=== PATIENT | male | born 1945 | race Caucasian/White ===

== ENCOUNTER 2017-01-24 19:27 | Emergency (ER) | payer MEDICARE ==
[2017-01-24 20:19] VITALS: TEMP 97.9
[2017-01-24 23:06] VITALS: O2SAT 98
--- NOTE | 2017-01-24 23:22 | C.PDOC ---
History Of Present Illness While sitting, pt felt dizzy., No cp, palpitations, no tinnitus. Symptoms since then have subsided. [place] like his sugar was high. No f/c/n/v Time Seen by Provider: 01/24/17 23:22 Chief Complaint (Nursing): Dizziness/Lightheaded History Per: Patient History/Exam Limitations: no limitations Onset/Duration Of Symptoms: Hrs (5) Current Symptoms Are (Timing): Gone Activity At Onset Of Symptoms: Sitting Severity: None Pain Scale Rating Of: 0 Recent travel outside of the [place]: No Additional History Per: Family - Symptoms Of CVA Associated Symptoms: denies: Impaired Speech, Decreased Ability To Walk, New Confusion Recent Aspirin Use: No Current Coumadin Use?: No Recent Head Trauma: No Past Medical History Reviewed: Historical Data, Nursing Documentation, Vital Signs Vital Signs: Last Vital Signs Temp 97.9 F 01/24/17 20:17 Pulse 82 01/24/17 23:00 Resp 20 01/24/17 23:00 BP 135/68 01/24/17 23:00 Pulse Ox 98 01/25/17 00:04 - Medical History PMH: Diabetes, HTN Family History: States: No Known Family Hx - Social History Hx Tobacco Use: No Hx Alcohol Use: No Hx Substance Use: No - Immunization History Hx Tetanus Toxoid Vaccination: Yes Hx Influenza Vaccination: Yes Hx Pneumococcal Vaccination: Yes Review Of Systems Constitutional: Negative for: Fever, Chills Eyes: Positive for: Redness Cardiovascular: Negative for: Chest Pain, Palpitations Respiratory: Negative for: Shortness of Breath Gastrointestinal: Negative for: Nausea, Vomiting, Abdominal Pain Genitourinary: Negative for: Dysuria Musculoskeletal: Negative for: Back Pain Skin: Negative for: Rash, Lesions Neurological: Negative for: Weakness Psych: Negative for: Anxiety Physical Exam - Physical Exam Appears: Non-toxic, No Acute Distress Skin: Warm, Dry Head: Normacephalic Eye(s): left: Other (subconjuctival hemmorhage) Oral Mucosa: Moist Lips: Normal Appearing Neck: Trachea Midline, Supple Chest: Symmetrical Cardiovascular: Rhythm Regular Respiratory: No Rales, No Rhonchi, No Wheezing Gastrointestinal/Abdominal: Soft, No Tenderness, No Distention Back: No CVA Tenderness Extremity: Normal ROM Extremity: Bilateral: Atraumatic Neurological/Psych: Oriented x3, Normal Speech, Normal Cognition Gait: Steady ED Course And Treatment - Laboratory Results Result Diagrams: 01/24/17 23:47 01/24/17 23:47 ECG: Interpreted By Me, Viewed By Me O2 Sat by Pulse Oximetry: 98 Pulse Ox Interpretation: Normal - Radiology CXR: Interpreted by Me, Viewed By Me CXR Interpretation: No: Infiltrates, Fracture, Pnemothorax Reevaluation Time: 02:04 Reassessment Condition: Improved Medical Decision Making Medical Decision Making: Upon provider reevaluation patient is feeling better, is medically stable, and requires no further treatment in the ED at this time. Patient will be discharged home . Counseling was provided and all questions were answered regarding diagnosis and need for follow up with dr munguia. There is agreement to discharge plan. Return if symptoms persist or worsen. Disposition Counseled Patient/Family Regarding: Studies Performed, Diagnosis, Need For Followup - Disposition Referrals: Arcenio Munguia MD [Staff Provider] - Disposition: HOME/ ROUTINE Disposition Time: 23:22 Condition: FAIR Additional Instructions: Please return if symptoms recur Instructions: Dizziness (ED), Diabetic Hyperglycemia (ED) - Clinical Impression Clinical Impression: Dizziness, Hyperglycemia
[2017-01-24 23:51] LABS: BASO # 0.1 K/uL (0.0-0.2); EOS # 0.1 K/uL (0.0-0.7); EOS % 1.3 % (0.0-4.0); LYMPH # 1.9 K/uL (1.0-4.3); MEAN CELL VOLUME 88.6 fL (80.0-94.0); MEAN CORPUSCULAR HEMOGLOBIN 29.2 pg (27.0-31.0); MEAN PLATELET VOLUME 7.7 fL (7.2-11.7); MONO # 0.7 K/uL (0.0-0.8); MONO % 7.7 % (0.0-10.0); RED CELL DISTRIBUTION WIDTH 13.7 % (11.5-14.5); WHITE BLOOD COUNT 9.6 K/uL (4.8-10.8)
[2017-01-25 00:01] LABS: CHLORIDE 103 mmol/L (98-107)
[2017-01-25 00:02] LABS: POTASSIUM 3.8 mmol/L (3.6-5.2); SODIUM 134 mmol/L (132-148)
[2017-01-25 00:04] LABS: ALB/GLOB RATIO 1.3 (1.0-2.1); ALKALINE PHOSPHATASE 57 U/L (38-126); ALT/SGPT 18 U/L (21-72); AST/SGOT 23 U/L (17-59); BILIRUBIN,TOTAL 0.6 mg/dL (0.2-1.3); BLOOD UREA NITROGEN 26 mg/dL (9-20); CARBON DIOXIDE 21 mmol/L (22-30); GFR AFRICAN-AMERICAN 38; TOTAL PROTEIN 6.9 g/dL (6.3-8.3)
[2017-01-25 00:05] LABS: GLUCOSE,RANDOM 216 mg/dL (75-110)
[2017-01-25 00:19] LABS: URINE BILIRUBIN NEGATIVE (NEGATIVE); URINE BLOOD NEGATIVE (NEGATIVE); URINE COLOR Straw (YELLOW); URINE GLUCOSE (UA) 2+ mg/dL (Normal); URINE KETONE NEGATIVE (NEGATIVE); URINE LEUKOCYTE ESTERASE NEG Leu/uL (Negative); URINE PROTEIN 1+ mg/dL (NEGATIVE); URINE UROBILINOGEN NORMAL mg/dL (0.2-1.0); WBC URINE < 1 /hpf (0-5)
[2017-01-25 02:18] VITALS: BP 145/75; PULSE 78; RESP 18
--- NOTE | 2017-01-25 07:40 | CT ---
PROCEDURE: CT HEAD WITHOUT CONTRAST. HISTORY: dizziness COMPARISON: None available. TECHNIQUE: Axial computed tomography images were obtained through the head/brain without intravenous contrast. Radiation dose: Total exam DLP = eight hundred eighty-one mGy-cm. This CT exam was performed using one or more of the following dose reduction techniques: Automated exposure control, adjustment of the mA and/or kV according to patient size, and/or use of iterative reconstruction technique. FINDINGS: HEMORRHAGE: No intracranial hemorrhage. BRAIN: No mass effect or edema. Scattered focal lucencies in the subcortical and periventricular white matter suggestive for chronic microvascular ischemic change. Probable small left basal ganglia lacunar infarct. VENTRICLES: Unremarkable. No hydrocephalus. CALVARIUM: Unremarkable. PARANASAL SINUSES: Unremarkable as visualized. No significant inflammatory changes. MASTOID AIR CELLS: Unremarkable as visualized. No inflammatory changes. OTHER FINDINGS: None. IMPRESSION: No acute intracranial abnormality. Chronic microvascular ischemic changes. Probable small left basal ganglia lacunar infarct. If focal neurologic deficit persists, consider MRI. These findings were preliminarily reported at 2 a.m. on 01/25/[address] Jaime Meehan from [facility].
--- NOTE | 2017-01-25 09:22 | RAD ---
PROCEDURE: CHEST RADIOGRAPH, 1 VIEW HISTORY: Diabetic COMPARISON: 12/09/2014. FINDINGS: LUNGS: The lungs are clear. PLEURA: No pneumothorax or pleural fluid seen. CARDIOVASCULAR: Normal. OSSEOUS STRUCTURES: No significant abnormalities. VISUALIZED UPPER ABDOMEN: Normal. OTHER FINDINGS: None. IMPRESSION: No active pulmonary disease.
== END 2017-01-25 02:17 | disposition home or self-care (01) ==
LOC: C.ER 19:27
DX: E11.65 Type 2 diabetes mellitus with hyperglycemia (principal); R42 Dizziness and giddiness

== ENCOUNTER 2017-06-30 07:57 | Inpatient (IN) | payer MEDICARE ==
--- NOTE | 2017-06-30 08:17 | C.PDOC ---
History Of Present Illness 71 yo male, hx of htn, hld, presents with weakness. as per pt, fell yesterday, after he slippedon water. today woke up and "couldn't walk". pt denies any specific complaints, head injury, fever, abdominal pain, cough, urinary changes , diarrhea. loc. Time Seen by Provider: 06/30/17 08:01 Chief Complaint (Nursing): Weakness/Neurological Deficit Past Medical History Reviewed: Historical Data, Nursing Documentation, Vital Signs Vital Signs: Last Vital Signs Temp 98.9 F 07/02/17 07:15 Pulse 94 H 07/02/17 10:34 Resp 18 07/02/17 07:15 BP 135/83 07/02/17 07:15 Pulse Ox 96 07/02/17 13:01 - Medical History PMH: Diabetes, HTN Family History: States: Unknown Family Hx - Social History Hx Tobacco Use: No Hx Alcohol Use: No Hx Substance Use: No - Immunization History Hx Tetanus Toxoid Vaccination: Yes Hx Influenza Vaccination: Yes Hx Pneumococcal Vaccination: Yes Review Of Systems Except As Marked, All Systems Reviewed And Found Negative. Neurological: Positive for: Weakness Physical Exam - Physical Exam Appears: Well, No Acute Distress Skin: Normal Color, Warm, Dry Eye(s): bilateral: Normal Inspection, PERRL, EOMI Nose: Normal Throat: Normal Neck: Normal Cardiovascular: Rhythm Regular Respiratory: Normal Breath Sounds Gastrointestinal/Abdominal: Normal Exam, Soft, No Tenderness, No Guarding, No Rebound Back: Normal Inspection, No CVA Tenderness, No Vertebral Tenderness, No Muscle Spasm, No Paraspinal Tenderness Extremity: Normal ROM Neurological/Psych: Oriented x3, Normal Speech, Normal Cognition, Normal Cranial Nerves, No Cerebellar Signs, Normal Motor ED Course And Treatment - Laboratory Results Result Diagrams: 07/02/17 07:35 07/02/17 07:35 O2 Sat by Pulse Oximetry: 96 Medical Decision Making Medical Decision Making: consider cva/tia, metabolic, infectious etiology- labs imaging pending. ekg nsr [address] twave changes 910: pt reassesed: states he no longer feels weak. neuro intact. no saddle anesthesia. 920: attempted to ambulate pt, pt feels unsteady gait, Disposition - Disposition Disposition: HOSPITALIZED Disposition Time: 10:00 Condition: STABLE - Clinical Impression Clinical Impression: Ataxia, Fall Decision To Admit - Pt Status Changed To: Hospital Disposition Of: Inpatient - Admit Certification Admit to Inpatient:: After my assessment, the patient will require hospitalization for at least two midnights. This is because of the severity of symptoms shown, intensity of services needed, and/or the medical risk in this patient being treated as an outpatient. - InPatient: Physician Admission Certification: I certify that this patient requires 2 or more midnights of care for the following reason:: inability to ambulate. need pt eval for gait dysfunction - . Bed Request Type: Regular Admitting Physician: Luisa Vazquez Patient Diagnosis: Ataxia, Fall
[2017-06-30 08:34] LABS: BASO % 0.6 % (0.0-2.0); EOS # 0.2 K/uL (0.0-0.7); EOS % 3.2 % (0.0-4.0); HEMATOCRIT 36.7 % (35.0-51.0); LYMPH # 1.6 K/uL (1.0-4.3); LYMPH % 22.8 % (20.0-40.0); MEAN CELL VOLUME 90.1 fL (80.0-94.0); MEAN CORPUSCULAR HGB CONC 34.4 g/dL (33.0-37.0); MEAN PLATELET VOLUME 7.4 fL (7.2-11.7); MONO # 0.6 K/uL (0.0-0.8); MONO % 9.2 % (0.0-10.0); NRBC % 0.1 % (0.0-2.0); RED CELL DISTRIBUTION WIDTH 13.9 % (11.5-14.5); WHITE BLOOD COUNT 7.1 K/uL (4.8-10.8)
[2017-06-30 08:53] LABS: ALKALINE PHOSPHATASE 65 U/L (38-126); ALT/SGPT 31 U/L (21-72); AST/SGOT 22 U/L (17-59); BILIRUBIN,TOTAL 0.3 mg/dL (0.2-1.3); BLOOD UREA NITROGEN 26 mg/dL (9-20); CALCIUM 9.4 mg/dl (8.6-10.4); CARBON DIOXIDE 26 mmol/L (22-30); CHLORIDE 104 mmol/L (98-107); GFR AFRICAN-AMERICAN 48; GLUCOSE,RANDOM 182 mg/dL (75-110); SODIUM 137 mmol/L (132-148); TOTAL PROTEIN 7.9 g/dL (6.3-8.3)
--- NOTE | 2017-06-30 09:04 | CT ---
PROCEDURE: CT HEAD WITHOUT CONTRAST. HISTORY: weakness COMPARISON: Unenhanced head CT 01/25/2017. TECHNIQUE: Axial computed tomography images were obtained through the head/brain without intravenous contrast. Radiation dose: Total exam DLP = 813.48 mGy-cm. This CT exam was performed using one or more of the following dose reduction techniques: Automated exposure control, adjustment of the mA and/or kV according to patient size, and/or use of iterative reconstruction technique. FINDINGS: HEMORRHAGE: No intracranial hemorrhage. BRAIN: The darling-white matter differentiation is well preserved. There is no mass effect or definitive edema pattern appreciate including the cortex. Diffuse cerebral atrophy chronic microangiopathy pattern remain mild. No suspicious extra-axial fluid collection is identified in the midline brain anatomy appears grossly nonfocal as imaged. Small left basal ganglia lacune again evident. VENTRICLES: Unremarkable. No hydrocephalus. CALVARIUM: Unremarkable. PARANASAL SINUSES: Unremarkable as visualized. No significant inflammatory changes. MASTOID AIR CELLS: Unremarkable as visualized. No inflammatory changes. OTHER FINDINGS: None. IMPRESSION: Stable mild age related neuro degenerative changes are appreciate without definite acute intracranial findings by standard CT criteria. Clinically correlate further need for possible follow-up CT or MRI.
[2017-06-30 10:44] LABS: RBC URINE < 1 /hpf (0-3); URINE BILIRUBIN NEGATIVE (NEGATIVE); URINE BLOOD NEGATIVE (NEGATIVE); URINE COLOR Straw (YELLOW); URINE GLUCOSE (UA) 1+ mg/dL (Normal); URINE KETONE NEGATIVE (NEGATIVE); URINE LEUKOCYTE ESTERASE NEG Leu/uL (Negative); URINE PROTEIN 2+ mg/dL (NEGATIVE); URINE UROBILINOGEN NORMAL mg/dL (0.2-1.0); WBC URINE < 1 /hpf (0-5)
--- NOTE | 2017-06-30 10:53 | RAD ---
PROCEDURE: Radiographs of the pelvis. HISTORY: fall COMPARISON: None. FINDINGS: BONES: Pelvic Bones: Unremarkable. Hips: Grossly unremarkable. JOINTS: Sacroiliac Joints: Unremarkable. Pubic Symphysis: Unremarkable. OTHER FINDINGS: None. IMPRESSION: Unremarkable radiographs of the pelvis.
--- NOTE | 2017-06-30 10:53 | RAD ---
PROCEDURE: CHEST RADIOGRAPH, 1 VIEW HISTORY: chest pain COMPARISON: 01/24/2017 FINDINGS: LUNGS: Clear. PLEURA: No pneumothorax or pleural fluid seen. CARDIOVASCULAR: Normal. OSSEOUS STRUCTURES: No significant abnormalities. VISUALIZED UPPER ABDOMEN: Normal. OTHER FINDINGS: None. IMPRESSION: No active disease.
[2017-06-30] MEDS ORDERED: PARICALCITOL 1 MCG PO SCH (15:15)
[2017-06-30] MEDS ORDERED: Home Med 1 UNIT (Aspirin [Aspirin] 81 MG) PO SCH (15:15)
[2017-06-30] MEDS ORDERED: VALSARTAN PO SCH (15:15)
[2017-06-30] MEDS ORDERED: AMLODIPINE PO SCH (15:15)
--- NOTE | 2017-06-30 17:30 | CP.PCM.CON ---
History of Present Illness - History of Present Illness History of Present Illness: Mr. Weber is a 71-year-old man with a past medical history of DM, HTN, HLD, previous stroke, who states that yesterday when he was mopping the floor, he slipped and fell. He was able to stand up afterward and did not have any deficits after the fall. He did not injure himself. He fell on his buttocks and did not complain of much pain afterward. However, this morning, when he attempted to get out of bed, he felt that he could not stand due to balance difficulty and inability to maintain a standing position. He did not feel "weak " per se, but he did feel that he could not stand, and definitely could not walk. He denied "spinning sensation", sensory changes, new weakness, headache, admits to chronic retinal and visual deficits (nothing new), denied nausea, vomiting, chest pain, shortness of breath or abdominal pain. Review of Systems - Review of Systems All systems: reviewed and no additional remarkable complaints except Past Patient History - Infectious Disease Hx of Infectious Diseases: None - Past Social History Smoking Status: Never Smoked - CARDIAC Hx Hypertension: Yes - RENAL Hx Renal Failure: Yes - ENDOCRINE/METABOLIC Hx Diabetes Mellitus Type 2: Yes - PSYCHIATRIC Hx Substance Use: No - SURGICAL HISTORY Hx Appendectomy: Yes Hx Cholecystectomy: Yes Hx Eye Surgery: Yes - ANESTHESIA Hx Anesthesia: Yes Hx Anesthesia Reactions: No Meds Allergies/Adverse Reactions: Allergies Allergy/AdvReac Type Severity Reaction Status Date / Time No Known Allergies Allergy Verified 06/30/17 08:07 - Medications Medications: Current Medications Docusate Sodium (Colace) 100 mg PO BID PRN PRN Reason: Constipation Famotidine (Pepcid) 20 mg PO BID [facility] Last Admin: 06/30/17 12:24 Dose: 20 mg Heparin Sodium (Porcine) (Heparin) 5,000 units SC Q8 [facility] Last Admin: 06/30/17 16:30 Dose: 5,000 units Home Med (Allopurinol [Allopurinol]) 100 mg PO ONCE [facility] Home Med (Amlodipine/Valsartan [Exforge 5-320 Mg Tablet]) 1 tab PO ONCE [facility] Home Med (Aspirin [Aspirin]) 81 mg PO ONCE [facility] Home Med (Difluprednate [Durezol]) 5 ml OU QID [facility] Home Med (Paricalcitol [Paricalcitol]) 1 mcg PO ONCE [facility] Insulin Glargine (Lantus) 40 unit SC HS [facility] Meclizine HCl (Antivert) 12.5 mg PO Q8H PRN PRN Reason: Dizziness Rosuvastatin Calcium (Crestor) 10 mg PO HS [facility] Sevelamer Carbonate (Renvela) 800 mg PO BID [facility] Physical Exam - Constitutional Appears: Well - Head Exam Head Exam: ATRAUMATIC, NORMAL INSPECTION, NORMOCEPHALIC - Eye Exam Eye Exam: EOMI, Normal appearance, PERRL - ENT Exam ENT Exam: Mucous Membranes Moist, Normal Exam - Neck Exam Neck exam: Positive for: Normal Inspection - Respiratory Exam Respiratory Exam: Clear to Auscultation Bilateral, NORMAL BREATHING PATTERN - Cardiovascular Exam Cardiovascular Exam: REGULAR RHYTHM, +S1, +S2 - GI/Abdominal Exam GI & Abdominal Exam: Normal Bowel Sounds, Soft. absent: Tenderness - Rectal Exam Rectal Exam: Deferred - Extremities Exam Extremities exam: Positive for: normal inspection - Back Exam Back exam: NORMAL INSPECTION - Neurological Exam Neurological exam: Abnormal Gait, CN II-XII Intact, Oriented x3, Reflexes Normal Additional comments: Trunkal ataxia noted on standing and attempting to ambulate. Strength was full/ symmetrical. Slight ataxia on the right side on finger to nose and heal to [place]. Slight nystagmus on the right lateral gaze. No sensory deficits. [place] was abnormal. Plantar response downgoing. Reflexes normal. NIHSS=1. Results - Vital Signs Recent Vital Signs: Last Vital Signs Temp 98.2 F 06/30/17 16:24 Pulse 87 06/30/17 16:24 Resp 18 06/30/17 16:24 BP 158/85 H 06/30/17 16:24 Pulse Ox 98 06/30/17 16:24 - Labs Result Diagrams: 06/30/17 08:23 06/30/17 08:23 Labs: Laboratory Results - last 24 hr 06/30/17 06/30/17 06/30/17 08:06 08:23 08:23 WBC 7.1 RBC 4.07 L Hgb 12.6 Hct 36.7 MCV 90.1 MCH 31.0 MCHC 34.4 RDW 13.9 Plt Count 266 MPV 7.4 Neut % (Auto) 64.2 Lymph % (Auto) 22.8 [place] % (Auto) 9.2 Eos % (Auto) 3.2 Baso % (Auto) 0.6 Neut # 4.5 Lymph # 1.6 [place] # 0.6 Eos # 0.2 Baso # 0.0 PT INR APTT Sodium 137 Potassium 4.0 Chloride 104 Carbon Dioxide 26 Anion Gap 12 BUN 26 H Creatinine 1.7 H Est GFR ( Amer) 48 Est GFR (Non-Af Amer) 40 POC Glucose (mg/dL) 190 H Random Glucose 182 H Calcium 9.4 Total Bilirubin 0.3 AST 22 ALT 31 Alkaline Phosphatase 65 Total Creatine Kinase 99 Troponin I < 0.0120 Total Protein 7.9 Albumin 4.0 Globulin 3.9 Albumin/Globulin Ratio 1.0 Urine Color Urine Clarity Urine pH Ur Specific [place] Urine Protein Urine Glucose (UA) Urine Ketones Urine Blood Urine Nitrate Urine Bilirubin Urine Urobilinogen Ur Leukocyte Esterase Urine WBC (Auto) Urine RBC (Auto) 06/30/17 06/30/17 06/30/17 08:23 10:05 16:20 WBC RBC Hgb Hct MCV MCH MCHC RDW Plt Count MPV Neut % (Auto) Lymph % (Auto) [place] % (Auto) Eos % (Auto) Baso % (Auto) Neut # Lymph # [place] # Eos # Baso # PT 11.1 INR 1.0 APTT 33 Sodium Potassium Chloride Carbon Dioxide Anion Gap BUN Creatinine Est GFR ( Amer) Est GFR (Non-Af Amer) POC Glucose (mg/dL) 213 H Random Glucose Calcium Total Bilirubin AST ALT Alkaline Phosphatase Total Creatine Kinase Troponin I Total Protein Albumin Globulin Albumin/Globulin Ratio Urine Color Straw Urine Clarity Clear Urine pH 5.0 Ur Specific [place] 1.012 Urine Protein 2+ H Urine Glucose (UA) 1+ H Urine Ketones Negative Urine Blood Negative Urine Nitrate Negative Urine Bilirubin Negative Urine Urobilinogen Normal Ur Leukocyte Esterase Neg Urine WBC (Auto) < 1 Urine RBC (Auto) < 1 - Imaging and Cardiology CT scan - head Status: Image reviewed by me, Report reviewed by me (No acute findings. ) Assessment & Plan (1) Ataxia Assessment and Plan: Trunkal ataxia could be due to either a cerebellar (vermis) lesion, metabolic causes, medication, or may be due to vertebrobasilar insufficiency. I recommend the followin. Telemetry 2. MRI of the brain without contrast, MRA of the head/neck without contrast 3. Echocardiogram with bubble study 4. Aspirin 81 mg daily, and load with Plavix 300 mg now, continue 75 mg daily ( starting tomorrow); continue dual antiplatelets for 21 days, then continue only Plavix 75 mg daily indefinitely 5. Check HbA1c, Lipids, TSH, B12, Vitamin D. 6. Permissive hypertension (treat BP only if higher than 220/110 mm Hg for the next 24 hours) 7. Fluids with NS at 100 mL/hr 8. DVT Px 9. PT/OT eval and treat 10. Case management consult Thank you. Status: Acute Priority: High
[2017-06-30] MEDS ORDERED: DIFLUPREDNATE OU SCH (18:00)
--- NOTE | 2017-06-30 18:13 | VASCLAB ---
PROCEDURE: HISTORY: weakness and fall COMPARISON: None available. TECHNIQUE: Grayscale and duplex Doppler evaluation of the cervical carotid and vertebral arteries were performed. The common carotid, carotid bifurcations and cervical Internal Carotid Artery (ICA) and proximal External Carotid Artery (ECA) were evaluated. The vertebral arteries were evaluated for gross patency and flow direction. Report prepared by Wisam Gilbert, BS, RVT FINDINGS: RIGHT CAROTID ARTERIES: 1. Common Carotid Artery: No significant focal plaque formation of the right common carotid artery. Maximum Peak Systolic velocity: 60 cm/sec: End-diastolic velocity 8 cm/sec. 2. Carotid Bifurcation: plaque formation. Maximum Peak Systolic velocity: 61 cm/sec: End-diastolic velocity 11 cm/sec. 3. Internal Carotid Artery: Plaque description: 3.1. Proximal Segment: Peak systolic velocity 58 cm/sec: End-diastolic velocity 14 cm/sec - % stenosis 0-15% 3.2. Middle Segment: Peak systolic velocity 78 cm/sec: End-diastolic velocity 20 cm/sec - % stenosis 0-15% 3.3. Distal Segment: Peak systolic velocity 53 cm/sec: End-diastolic velocity 14 cm/sec - % stenosis 0-15% 4. External Carotid Artery: No significant focal plaque formation. Peak systolic velocity 103 cm/sec 5. ICA/CCA Ratio: 1.3 LEFT CAROTID ARTERIES: 1. Common Carotid Artery: No significant focal plaque formation of the left common carotid artery. Maximum Peak Systolic velocity: 74 cm/sec: End-diastolic velocity 13 cm/sec. 2. Carotid Bifurcation: Calcific plaque formation. Maximum Peak Systolic velocity: 70 cm/sec: End-diastolic velocity 11 cm/sec. 3. Internal Carotid Artery: Minimal plaque formation of the left proximal ICA which does not result in hemodynamically significant stenosis. Plaque description: Calcific 3.1. Proximal Segment: Peak systolic velocity 64 cm/sec: End-diastolic velocity 16 cm/sec - % stenosis 0-15% 3.2. Middle Segment: Peak systolic velocity 44 cm/sec: End-diastolic velocity 14 cm/sec - % stenosis 0-15% 3.3. Distal Segment: Peak systolic velocity 58 cm/sec: End-diastolic velocity 18 cm/sec - % stenosis 0-15% 4. External Carotid Artery: No significant focal plaque formation. Peak systolic velocity 90 cm/sec 5. ICA/CCA Ratio: 0.9 VERTEBRAL ARTERIES: 1. Right Vertebral Artery: The right vertebral artery flow direction is antegrade. 2. Left Vertebral Artery: The left vertebral artery flow direction is antegrade. OTHER FINDINGS: 1. Right Brachial Blood pressure: 164 mmHg. 2. Left Brachial Blood pressure: 160 mmHg. IMPRESSION: RIGHT: Duplex scan does not suggest hemodynamically significant stenosis of the right extracranial carotid arteries. LEFT: Duplex scan does not suggest hemodynamically significant stenosis of the left extracranial carotid arteries.
--- NOTE | 2017-06-30 19:41 | CP.PCM.HP ---
History of Present Illness - History of Present Illness History of Present Illness: CC: "I cant walk" HPI: 71 M who presents to the ED saying he is having trouble walking. Patient says he had an unwittnessed slip and fall yesterday while mopping the floor. He denies head trauma , loss of conciousness, and injury to his arms and legs at that time. However, when the patient woke up this morning he tried to get out of bed and says he could not stand up and walk. Patient says he did not feel like his legs were numb or even weak but he just could not walk. Patient admits to some mild dizziness upon standing. Patient denies any pain in his legs, headache, changes in vision or hearing, chest pain, palpitations, SOB, N&V, diarrhea, blood in stool, dysuria, calf pain, and LE swelling. PMH: HTN, HLD, DM1, Chronic renal insufficiency, Hx CVA Meds: * Allopurinol 100 mg PO QD * Amlodipine/Valsartan PO QD * Aspirin 81 mg PO QD * Difluprednate 5 ml OU QID * Hydralazine 25 mg PO QD * Lantus 40 U SC HS * Meclizine 12.5mg PO Q8 PRN * Paricalcitol 1 mcg PO QD * Crestor 10 mg PO HS * Renvela 800 mg PO BID * Januvia 100 mg PO QD Allergies: NKDA PSH: Appendectomy, Cholecystectomy, Retinal surgery of Right eye FH: liver disease (father), Parkinson (mother) SH: denies tobacco, alcohol, and elicit drug use Present on Admission - Present on Admission Any Indicators Present on Admission: No Review of Systems - Review of Systems All systems: reviewed and no additional remarkable complaints except (as per HPI ) Past Patient History - Infectious Disease Hx of Infectious Diseases: None - Past Social History Smoking Status: Never Smoked - CARDIAC Hx Hypertension: Yes - RENAL Hx Renal Failure: Yes - ENDOCRINE/METABOLIC Hx Diabetes Mellitus Type 2: Yes - PSYCHIATRIC Hx Substance Use: No - SURGICAL HISTORY Hx Appendectomy: Yes Hx Cholecystectomy: Yes Hx Eye Surgery: Yes - ANESTHESIA Hx Anesthesia: Yes Hx Anesthesia Reactions: No Meds Allergies/Adverse Reactions: Allergies Allergy/AdvReac Type Severity Reaction Status Date / Time No Known Allergies Allergy Verified 06/30/17 08:07 Physical Exam - Constitutional Appears: Non-toxic, No Acute Distress - Head Exam Head Exam: ATRAUMATIC, NORMAL INSPECTION, NORMOCEPHALIC - Eye Exam Eye Exam: EOMI, Normal appearance - ENT Exam ENT Exam: Mucous Membranes Moist - Respiratory Exam Respiratory Exam: Clear to Auscultation Bilateral, NORMAL BREATHING PATTERN. absent: Accessory Muscle Use, Rales, Rhonchi, Wheezes, Respiratory Distress - Cardiovascular Exam Cardiovascular Exam: RRR, +S1, +S2 - GI/Abdominal Exam GI & Abdominal Exam: Normal Bowel Sounds, Soft. absent: Tenderness - Extremities Exam Extremities exam: Positive for: normal inspection. Negative for: calf tenderness, pedal edema - Neurological Exam Neurological exam: Abnormal Gait, Alert, Oriented x3 - Expanded Neurological Exam Expanded Neuro motor strength exam: Left Upper Extremity: 5, Right Upper Extremity: 5, Left Lower Extremity: 5, Right Lower Extremity: 5 - Psychiatric Exam Psychiatric exam: Normal Affect, Normal Mood - Skin Skin Exam: Dry, Intact, Normal Color, Warm Results - Vital Signs Recent Vital Signs: Last Vital Signs Temp 98 F 06/30/17 18:43 Pulse 85 06/30/17 18:43 Resp 20 06/30/17 18:43 BP 138/84 06/30/17 18:43 Pulse Ox 95 06/30/17 18:43 - Labs Result Diagrams: 06/30/17 08:23 06/30/17 08:23 Labs: Laboratory Results - last 24 hr 06/30/17 06/30/17 06/30/17 08:06 08:23 08:23 WBC 7.1 RBC 4.07 L Hgb 12.6 Hct 36.7 MCV 90.1 MCH 31.0 MCHC 34.4 RDW 13.9 Plt Count 266 MPV 7.4 Neut % (Auto) 64.2 Lymph % (Auto) 22.8 [place] % (Auto) 9.2 Eos % (Auto) 3.2 Baso % (Auto) 0.6 Neut # 4.5 Lymph # 1.6 [place] # 0.6 Eos # 0.2 Baso # 0.0 PT INR APTT Sodium 137 Potassium 4.0 Chloride 104 Carbon Dioxide 26 Anion Gap 12 BUN 26 H Creatinine 1.7 H Est GFR ( Amer) 48 Est GFR (Non-Af Amer) 40 POC Glucose (mg/dL) 190 H Random Glucose 182 H Calcium 9.4 Total Bilirubin 0.3 AST 22 ALT 31 Alkaline Phosphatase 65 Total Creatine Kinase 99 CK-MB (Mass) Troponin I < 0.0120 Total Protein 7.9 Albumin 4.0 Globulin 3.9 Albumin/Globulin Ratio 1.0 Urine Color Urine Clarity Urine pH Ur Specific [place] Urine Protein Urine Glucose (UA) Urine Ketones Urine Blood Urine Nitrate Urine Bilirubin Urine Urobilinogen Ur Leukocyte Esterase Urine WBC (Auto) Urine RBC (Auto) 06/30/17 06/30/17 06/30/17 08:23 10:05 16:20 WBC RBC Hgb Hct MCV MCH MCHC RDW Plt Count MPV Neut % (Auto) Lymph % (Auto) [place] % (Auto) Eos % (Auto) Baso % (Auto) Neut # Lymph # [place] # Eos # Baso # PT 11.1 INR 1.0 APTT 33 Sodium Potassium Chloride Carbon Dioxide Anion Gap BUN Creatinine Est GFR ( Amer) Est GFR (Non-Af Amer) POC Glucose (mg/dL) 213 H Random Glucose Calcium Total Bilirubin AST ALT Alkaline Phosphatase Total Creatine Kinase CK-MB (Mass) Troponin I Total Protein Albumin Globulin Albumin/Globulin Ratio Urine Color Straw Urine Clarity Clear Urine pH 5.0 Ur Specific [place] 1.012 Urine Protein 2+ H Urine Glucose (UA) 1+ H Urine Ketones Negative Urine Blood Negative Urine Nitrate Negative Urine Bilirubin Negative Urine Urobilinogen Normal Ur Leukocyte Esterase Neg Urine WBC (Auto) < 1 Urine RBC (Auto) < 1 06/30/17 18:13 WBC RBC Hgb Hct MCV MCH MCHC RDW Plt Count MPV Neut % (Auto) Lymph % (Auto) [place] % (Auto) Eos % (Auto) Baso % (Auto) Neut # Lymph # [place] # Eos # Baso # PT INR APTT Sodium Potassium Chloride Carbon Dioxide Anion Gap BUN Creatinine Est GFR ( Amer) Est GFR (Non-Af Amer) POC Glucose (mg/dL) Random Glucose Calcium Total Bilirubin AST ALT Alkaline Phosphatase Total Creatine Kinase 104 CK-MB (Mass) 0.67 Troponin I < 0.0120 Total Protein Albumin Globulin Albumin/Globulin Ratio Urine Color Urine Clarity Urine pH Ur Specific [place] Urine Protein Urine Glucose (UA) Urine Ketones Urine Blood Urine Nitrate Urine Bilirubin Urine Urobilinogen Ur Leukocyte Esterase Urine WBC (Auto) Urine RBC (Auto) Assessment & Plan (1) Ataxia Assessment and Plan: * Admit to telemetry * Neurology consult ([place]) - recs appreciated * f/u HAROON * f/u carotid US * f/u echo * f/u brain MRI without contrast * f/u PT/INR * neuro checks Q8 * PT/OT * Fall risk protocol Status: Acute Priority: High (2) Dizziness Assessment and Plan: * see above Status: Acute (3) HTN (hypertension) Assessment and Plan: * Amlodipine/Valsartan PO QD * Hydralazine 25 mg PO QD Status: Acute (4) HLD (hyperlipidemia) Assessment and Plan: * Crestor 10 mg PO HS Status: Acute (5) Diabetes mellitus Assessment and Plan: * Lantus 40 U SC HS * Januvia 100 mg PO QD Status: Acute (6) Prophylactic measure Assessment and Plan: * Pepcid 20 mg PO BID * Heparin 5000U SC Q8 Status: Acute
--- NOTE | 2017-06-30 21:35 | CP.PCM.CON ---
<Dc Gonzáles Brodie - Last Filed: 06/30/17 21:40> History of Present Illness - History of Present Illness History of Present Illness: Cardiology consult note for Dr. Oniel Jay DO, PGY-5 Reason For Consult: Near - Syncope HPI: 71 M with pertinent PMHx of HTN, HLD, DM1, and CVA presents with being unsteady on his feet. Yesterday around 2 PM, the patient had a strictly mechanical fall and tried to catch himself, but landed on his buttocks. He did not hit his head , did not feel dizzy or any kind of aura before hand, and remembers everything before the fall, leading up to the fall, the fall itself, and everything after the fall. Patient was able to get up and walk around after the fall, and was doing fine until this morning, when he was unable to walk. Patient states that he can feel everything, and move his extremities, but that he is simply unsteady on his feet. Patient does admit to tingling in his b/l feet, but attributes this to his diabetic neuropathy. Pt denies any confusion, n/v/d, dizziness, and any cp/sob. Patient has no further complaints at this time. Pt denies f/ch/cp/sob/n/v/d/dysuria/frequency/urgency/hematuria/hematochezia/ hematemesis PSHx: Appendectomy, Cholecystectomy, Retinal surgery of Right eye PMHx: HTN, HLD, DM1, Chronic renal insufficiency, Hx CVA 10 years ago without any residual deficits All: NKDA SocHx: denies tobacco, alcohol, and elicit drug use Hosp: FamHx: liver disease (father), Parkinson (mother); denies any immediate family history of cardiac dz Meds: Allopurinol 100 mg PO QD; Amlodipine/Valsartan PO QD; Aspirin 81 mg PO QD; Difluprednate 5 ml OU QID Hydralazine 25 mg PO QD Lantus 40 U SC HS Meclizine 12.5mg PO Q8 PRN Paricalcitol 1 mcg PO QD Crestor 10 mg PO HS Renvela 800 mg PO BID Januvia 100 mg PO QD ROS: Const'l: pt denies fever, chills, generalized weakness ENT: pt denies dysphagia, otalgia, hearing deficit, rhinorrhea Eyes: pt denies sudden loss of vision, diplopia, blurred vision MSK: +see hpi; pt denies muscle stiffness, joint pain, extremity cramping Cardio: pt denies sob, heart murmur, cp Pulm: pt denies cough, hemoptysis, wheeze GI: pt denies loss of appetite, abdominal pain, constipation, melena, n/v/d : pt denies burning on urination, urinary frequency, hematuria, urinary urgency Neuro: pt denies paresis, paresthesia, dizziness, wick, numbness, tingling Derm: pt denies skin changes, lesions, nail changes Endo: pt denies intolerance to heat/cold, diaphoresis, night sweats, polydipsia Psych: pt denies anxiety, depression, mood changes Past Patient History - Infectious Disease Hx of Infectious Diseases: None - Past Social History Smoking Status: Never Smoked - CARDIAC Hx Hypertension: Yes - HEENT Hx Cataracts: Yes (both eyes surgery) - RENAL Hx Renal Failure: Yes - ENDOCRINE/METABOLIC Hx Diabetes Mellitus Type 2: Yes - MUSCULOSKELETAL/RHEUMATOLOGICAL Hx Falls: Yes - PSYCHIATRIC Hx Substance Use: No - SURGICAL HISTORY Hx Appendectomy: Yes Hx Cholecystectomy: Yes Hx Eye Surgery: Yes - ANESTHESIA Hx Anesthesia: Yes Hx Anesthesia Reactions: No Meds Allergies/Adverse Reactions: Allergies Allergy/AdvReac Type Severity Reaction Status Date / Time No Known Allergies Allergy Verified 06/30/17 08:07 - Medications Medications: Current Medications Allopurinol (Zyloprim) 100 mg PO DAILY [facility] Aspirin (Aspirin Chewable) 81 mg PO DAILY [facility] Docusate Sodium (Colace) 100 mg PO BID PRN PRN Reason: Constipation Famotidine (Pepcid) 20 mg PO BID [facility] Last Admin: 06/30/17 18:56 Dose: 20 mg Heparin Sodium (Porcine) (Heparin) 5,000 units SC Q8 [facility] Last Admin: 06/30/17 16:30 Dose: 5,000 units Home Med (Difluprednate [Durezol]) 5 ml OU QID [facility] Home Med (Paricalcitol [Paricalcitol]) 1 mcg PO DAILY [facility] Hydralazine HCl (Apresoline) 25 mg PO DAILY [facility] Insulin Glargine (Lantus) 40 unit SC HS [facility] Losartan Potassium (Cozaar) 100 mg PO DAILY [facility] Meclizine HCl (Antivert) 12.5 mg PO Q8H PRN PRN Reason: Dizziness Rosuvastatin Calcium (Crestor) 10 mg PO HS [facility] Sevelamer Carbonate (Renvela) 800 mg PO BID [facility] Last Admin: 06/30/17 18:56 Dose: 800 mg Sitagliptin Phosphate (Januvia) 100 mg PO DAILY [facility] Physical Exam - Additional Findings Additional findings: Phys Exam: VS as below Const'l: a&o x 4, nad Head/Neck: neck supple, no jvd, trachea midline, carotid midline, no cervical /head mass Eyes: camila, nonicteric sclera, eom intact ENT: auditory acuity grossly intact, throat not congested, no nasal deformity Cardio: rrr, no m/r/g, no carotid bruit, nml s1, s2 Pulm: no accessory muscle use, equal nml breath sounds bilaterally, ctab Abd: s/nt/nd, nbs x 4 q, no palpable masses Derm: no rashes, no ulcers, no lesions Extr: no edema, no cyanosis, no calf tenderness, no lesions, no varicosities Neuro: cn II-XII grossly intact, ue and le 5/5 muscle strength bilaterally, no los ue, le bilaterally and core Results - Vital Signs Recent Vital Signs: Last Vital Signs Temp 97.8 F 06/30/17 20:04 Pulse 77 06/30/17 20:04 Resp 18 06/30/17 20:04 BP 154/85 H 06/30/17 20:04 Pulse Ox 98 06/30/17 20:04 - Labs Result Diagrams: 06/30/17 08:23 06/30/17 08:23 Labs: Laboratory Results - last 24 hr 06/30/17 06/30/17 06/30/17 08:06 08:23 08:23 WBC 7.1 RBC 4.07 L Hgb 12.6 Hct 36.7 MCV 90.1 MCH 31.0 MCHC 34.4 RDW 13.9 Plt Count 266 MPV 7.4 Neut % (Auto) 64.2 Lymph % (Auto) 22.8 [place] % (Auto) 9.2 Eos % (Auto) 3.2 Baso % (Auto) 0.6 Neut # 4.5 Lymph # 1.6 [place] # 0.6 Eos # 0.2 Baso # 0.0 PT INR APTT Sodium 137 Potassium 4.0 Chloride 104 Carbon Dioxide 26 Anion Gap 12 BUN 26 H Creatinine 1.7 H Est GFR ( Amer) 48 Est GFR (Non-Af Amer) 40 POC Glucose (mg/dL) 190 H Random Glucose 182 H Calcium 9.4 Total Bilirubin 0.3 AST 22 ALT 31 Alkaline Phosphatase 65 Total Creatine Kinase 99 CK-MB (Mass) Troponin I < 0.0120 Total Protein 7.9 Albumin 4.0 Globulin 3.9 Albumin/Globulin Ratio 1.0 Urine Color Urine Clarity Urine pH Ur Specific [place] Urine Protein Urine Glucose (UA) Urine Ketones Urine Blood Urine Nitrate Urine Bilirubin Urine Urobilinogen Ur Leukocyte Esterase Urine WBC (Auto) Urine RBC (Auto) 06/30/17 06/30/17 06/30/17 08:23 10:05 16:20 WBC RBC Hgb Hct MCV MCH MCHC RDW Plt Count MPV Neut % (Auto) Lymph % (Auto) [place] % (Auto) Eos % (Auto) Baso % (Auto) Neut # Lymph # [place] # Eos # Baso # PT 11.1 INR 1.0 APTT 33 Sodium Potassium Chloride Carbon Dioxide Anion Gap BUN Creatinine Est GFR ( Amer) Est GFR (Non-Af Amer) POC Glucose (mg/dL) 213 H Random Glucose Calcium Total Bilirubin AST ALT Alkaline Phosphatase Total Creatine Kinase CK-MB (Mass) Troponin I Total Protein Albumin Globulin Albumin/Globulin Ratio Urine Color Straw Urine Clarity Clear Urine pH 5.0 Ur Specific [place] 1.012 Urine Protein 2+ H Urine Glucose (UA) 1+ H Urine Ketones Negative Urine Blood Negative Urine Nitrate Negative Urine Bilirubin Negative Urine Urobilinogen Normal Ur Leukocyte Esterase Neg Urine WBC (Auto) < 1 Urine RBC (Auto) < 1 06/30/17 18:13 WBC RBC Hgb Hct MCV MCH MCHC RDW Plt Count MPV Neut % (Auto) Lymph % (Auto) [place] % (Auto) Eos % (Auto) Baso % (Auto) Neut # Lymph # [place] # Eos # Baso # PT INR APTT Sodium Potassium Chloride Carbon Dioxide Anion Gap BUN Creatinine Est GFR ( Amer) Est GFR (Non-Af Amer) POC Glucose (mg/dL) Random Glucose Calcium Total Bilirubin AST ALT Alkaline Phosphatase Total Creatine Kinase 104 CK-MB (Mass) 0.67 Troponin I < 0.0120 Total Protein Albumin Globulin Albumin/Globulin Ratio Urine Color Urine Clarity Urine pH Ur Specific [place] Urine Protein Urine Glucose (UA) Urine Ketones Urine Blood Urine Nitrate Urine Bilirubin Urine Urobilinogen Ur Leukocyte Esterase Urine WBC (Auto) Urine RBC (Auto) Assessment & Plan - Assessment and Plan (Free Text) Assessment: A/P 71 M with HTN, HLD, DM and past CVA presenting with near-syncope. All evidence points to a mechanical fall. Not able to walk at this time, but has full sensation and motor function in UE and LE b/l. No sob, cp. Near Syncope - Most likely mechanical fall - ECHO, Carotid U/S, PT/INR ordered - f/u HAROON Dizziness - ECHO ordered - Neurology on board HTN - Amlodipine/Valsartan; Hydralazine 25 DM - Lantus, Januvia HLD - Crestor Thank you for this interesting consult Dc Woods DO PGY - 1, d/w Dr. Engle <Rajendra Engle - Last Filed: 07/01/17 22:40> Meds - Medications Medications: Current Medications Allopurinol (Zyloprim) 100 mg PO DAILY [facility] Last Admin: 07/01/17 09:41 Dose: 100 mg Aspirin (Aspirin Chewable) 81 mg PO DAILY [facility] Last Admin: 07/01/17 09:41 Dose: 81 mg Clopidogrel Bisulfate (Plavix) 75 mg PO DAILY [facility] Last Admin: 07/01/17 13:00 Dose: 75 mg Docusate Sodium (Colace) 100 mg PO BID PRN PRN Reason: Constipation Last Admin: 07/01/17 18:01 Dose: 100 mg Famotidine (Pepcid) 20 mg PO BID [facility] Last Admin: 07/01/17 18:01 Dose: 20 mg Heparin Sodium (Porcine) (Heparin) 5,000 units SC Q8 [facility] Last Admin: 07/01/17 21:22 Dose: 5,000 units Home Med (Difluprednate [Durezol]) 5 ml OU QID [facility] Home Med (Paricalcitol [Paricalcitol]) 1 mcg PO DAILY [facility] Hydralazine HCl (Apresoline) 25 mg PO DAILY [facility] Last Admin: 07/01/17 09:41 Dose: 25 mg Insulin Glargine (Lantus) 40 unit SC HS [facility] Last Admin: 07/01/17 22:23 Dose: Not Given Losartan Potassium (Cozaar) 100 mg PO DAILY [facility] Last Admin: 07/01/17 09:42 Dose: 100 mg Meclizine HCl (Antivert) 12.5 mg PO Q8H PRN PRN Reason: Dizziness Last Admin: 07/01/17 18:01 Dose: 12.5 mg Rosuvastatin Calcium (Crestor) 10 mg PO HS [facility] Last Admin: 07/01/17 21:23 Dose: 10 mg Sevelamer Carbonate (Renvela) 800 mg PO BID [facility] Last Admin: 07/01/17 18:00 Dose: 800 mg Sitagliptin Phosphate (Januvia) 100 mg PO DAILY [facility] Last Admin: 07/01/17 09:46 Dose: 100 mg Results - Vital Signs Recent Vital Signs: Last Vital Signs Temp 97.6 F 07/01/17 15:32 Pulse 65 07/01/17 15:32 Resp 18 07/01/17 15:32 BP 151/84 H 07/01/17 15:32 Pulse Ox 97 07/01/17 15:32 - Labs Result Diagrams: 07/01/17 06:32 07/01/17 06:32 Labs: Laboratory Results - last 24 hr 07/01/17 07/01/17 07/01/17 06:05 06:32 06:32 WBC 8.5 RBC 4.01 L Hgb 12.2 Hct 36.1 MCV 90.1 MCH 30.5 MCHC 33.9 RDW 14.1 Plt Count 253 MPV 7.5 Neut % (Auto) 66.3 Lymph % (Auto) 23.3 [place] % (Auto) 6.9 Eos % (Auto) 2.8 Baso % (Auto) 0.7 Neut # 5.6 Lymph # 2.0 [place] # 0.6 Eos # 0.2 Baso # 0.1 Sodium 137 Potassium 4.2 Chloride 101 Carbon Dioxide 26 Anion Gap 14 BUN 22 H Creatinine 1.6 H Est GFR ( Amer) 52 Est GFR (Non-Af Amer) 43 POC Glucose (mg/dL) 196 H Random Glucose 163 H Calcium 9.0 Total Bilirubin 0.7 AST 25 ALT 27 Alkaline Phosphatase 64 Total Protein 6.8 Albumin 3.9 Globulin 2.8 Albumin/Globulin Ratio 1.4 Triglycerides Cholesterol LDL Cholesterol Direct HDL Cholesterol Vitamin B12 25-OH Vitamin D Total TSH 3rd Generation 07/01/17 07/01/17 07/01/17 11:36 11:36 12:04 WBC RBC Hgb Hct MCV MCH MCHC RDW Plt Count MPV Neut % (Auto) Lymph % (Auto) [place] % (Auto) Eos % (Auto) Baso % (Auto) Neut # Lymph # [place] # Eos # Baso # Sodium Potassium Chloride Carbon Dioxide Anion Gap BUN Creatinine Est GFR ( Amer) Est GFR (Non-Af Amer) POC Glucose (mg/dL) 251 H Random Glucose Calcium Total Bilirubin AST ALT Alkaline Phosphatase Total Protein Albumin Globulin Albumin/Globulin Ratio Triglycerides 142 Cholesterol 126 LDL Cholesterol Direct 51 HDL Cholesterol 51 Vitamin B12 352 25-OH Vitamin D Total 32.7 TSH 3rd Generation 0.96 07/01/17 07/01/17 17:16 22:04 WBC RBC Hgb Hct MCV MCH MCHC RDW Plt Count MPV Neut % (Auto) Lymph % (Auto) [place] % (Auto) Eos % (Auto) Baso % (Auto) Neut # Lymph # [place] # Eos # Baso # Sodium Potassium Chloride Carbon Dioxide Anion Gap BUN Creatinine Est GFR ( Amer) Est GFR (Non-Af Amer) POC Glucose (mg/dL) 198 H 227 H Random Glucose Calcium Total Bilirubin AST ALT Alkaline Phosphatase Total Protein Albumin Globulin Albumin/Globulin Ratio Triglycerides Cholesterol LDL Cholesterol Direct HDL Cholesterol Vitamin B12 25-OH Vitamin D Total TSH 3rd Generation Attending/Attestation - Attestation I have personally seen and examined this patient.: Yes I have fully participated in the care of the patient.: Yes I have reviewed all pertinent clinical information: Yes Notes (Text): 07/01/17 22:39 s/p fall ? near syncope echo/carotid MRI/MRA - neuro w/u
[2017-06-30] MEDS: (Lantus) Insulin Glargine, Recombinant SC SCH (21:54)
[2017-07-01 06:43] LABS: BASO # 0.1 K/uL (0.0-0.2); BASO % 0.7 % (0.0-2.0); EOS # 0.2 K/uL (0.0-0.7); EOS % 2.8 % (0.0-4.0); HEMATOCRIT 36.1 % (35.0-51.0); LYMPH % 23.3 % (20.0-40.0); MEAN CELL VOLUME 90.1 fL (80.0-94.0); MEAN CORPUSCULAR HEMOGLOBIN 30.5 pg (27.0-31.0); MEAN CORPUSCULAR HGB CONC 33.9 g/dL (33.0-37.0); MEAN PLATELET VOLUME 7.5 fL (7.2-11.7); MONO # 0.6 K/uL (0.0-0.8); MONO % 6.9 % (0.0-10.0); RED CELL DISTRIBUTION WIDTH 14.1 % (11.5-14.5); WHITE BLOOD COUNT 8.5 K/uL (4.8-10.8)
[2017-07-01 06:50] LABS: ALB/GLOB RATIO 1.4 (1.0-2.1); BILIRUBIN,TOTAL 0.7 mg/dL (0.2-1.3); POTASSIUM 4.2 mmol/L (3.6-5.2); TOTAL PROTEIN 6.8 g/dL (6.3-8.3)
[2017-07-01] MEDS ORDERED: PARICALCITOL 1 MCG PO SCH (10:00)
[2017-07-01] MEDS ORDERED: Gadodiamide 287 MG/ML VIAL (15ML) IV ONE (10:30)
--- NOTE | 2017-07-01 11:08 | CP.PCM.PN ---
<Narcisa Vu - Last Filed: 07/01/17 11:10> Subjective - Date & Time of Evaluation Date of Evaluation: 07/01/17 Time of Evaluation: 08:00 - Subjective Subjective: Medicine note for Dr. Camara Patient seen and examind at bedside. Patient sitting comfortably on the side of his bed enjoying breakfast. Patient says he is doing better today but still feels like he is unable to walk steadily. Patient is not having pain anywhere. He is tolerating his diet. Patient denies fever, chills, chest pain, SOB, abdominal discomfort, N&V, diarrhea, LE pain, LE swelling, LE numbness or tingling, and LE weakness. Objective - Vital Signs/Intake and Output Vital Signs (last 24 hours): Temp Pulse Resp BP Pulse Ox 98.2 F 68 20 167/81 H 95 07/01/17 07:15 07/01/17 07:15 07/01/17 07:15 07/01/17 07:15 07/01/17 07:15 Intake and Output: 07/01/17 07/01/17 06:59 18:59 Intake Total 250 Output Total 200 Balance 50 - Medications Medications: Current Medications Allopurinol (Zyloprim) 100 mg PO DAILY [facility] Last Admin: 07/01/17 09:41 Dose: 100 mg Aspirin (Aspirin Chewable) 81 mg PO DAILY [facility] Last Admin: 07/01/17 09:41 Dose: 81 mg Clopidogrel Bisulfate (Plavix) 75 mg PO DAILY [facility] Docusate Sodium (Colace) 100 mg PO BID PRN PRN Reason: Constipation Last Admin: 07/01/17 09:41 Dose: 100 mg Famotidine (Pepcid) 20 mg PO BID [facility] Last Admin: 07/01/17 09:41 Dose: 20 mg Heparin Sodium (Porcine) (Heparin) 5,000 units SC Q8 [facility] Last Admin: 07/01/17 06:09 Dose: 5,000 units Home Med (Difluprednate [Durezol]) 5 ml OU QID [facility] Home Med (Paricalcitol [Paricalcitol]) 1 mcg PO DAILY [facility] Hydralazine HCl (Apresoline) 25 mg PO DAILY [facility] Last Admin: 07/01/17 09:41 Dose: 25 mg Insulin Glargine (Lantus) 40 unit SC HS [facility] Last Admin: 06/30/17 21:54 Dose: Not Given Losartan Potassium (Cozaar) 100 mg PO DAILY [facility] Last Admin: 07/01/17 09:42 Dose: 100 mg Meclizine HCl (Antivert) 12.5 mg PO Q8H PRN PRN Reason: Dizziness Rosuvastatin Calcium (Crestor) 10 mg PO [facility] Last Admin: 06/30/17 21:32 Dose: 10 mg Sevelamer Carbonate (Renvela) 800 mg PO BID [facility] Last Admin: 07/01/17 09:41 Dose: 800 mg Sitagliptin Phosphate (Januvia) 100 mg PO DAILY [facility] Last Admin: 07/01/17 09:46 Dose: 100 mg - Labs Labs: 07/01/17 06:32 07/01/17 06:32 PT 11.1 SECONDS (9.7-12.2) 06/30/17 08:23 INR 1.0 06/30/17 08:23 APTT 33 SECONDS (21-34) 06/30/17 08:23 - Additional Findings Additional findings: - Constitutional Appears: Non-toxic, No Acute Distress - Head Exam Head Exam: ATRAUMATIC, NORMAL INSPECTION, NORMOCEPHALIC - Eye Exam Eye Exam: EOMI, Normal appearance - ENT Exam ENT Exam: Mucous Membranes Moist - Respiratory Exam Respiratory Exam: Clear to Auscultation Bilateral, NORMAL BREATHING PATTERN. absent: Accessory Muscle Use, Rales, Rhonchi, Wheezes, Respiratory Distress - Cardiovascular Exam Cardiovascular Exam: RRR, +S1, +S2 - GI/Abdominal Exam GI & Abdominal Exam: Normal Bowel Sounds, Soft. absent: Tenderness - Extremities Exam Extremities exam: Positive for: normal inspection. Negative for: calf tenderness, pedal edema - Neurological Exam Neurological exam: Abnormal Gait (trunkal ataxia), Alert, Oriented x3 - Expanded Neurological Exam Expanded Neuro motor strength exam: Left Upper Extremity: 5, Right Upper Extremity: 5, Left Lower Extremity: 5, Right Lower Extremity: 5 - Psychiatric Exam Psychiatric exam: Normal Affect, Normal Mood - Skin Skin Exam: Dry, Intact, Normal Color, Warm Assessment and Plan (1) Ataxia Status: Acute (2) Dizziness Status: Acute (3) HTN (hypertension) Status: Acute (4) HLD (hyperlipidemia) Status: Acute (5) Diabetes mellitus Status: Acute (6) Prophylactic measure Status: Acute - Assessment and Plan (Free Text) Plan: (1) Ataxia Assessment and Plan: * Admit to telemetry * Neurology consult (Titi) - recs appreciated * f/u MRA head and neck * f/u HbA1c, Lipid panel, TSH, B12, Vitamin D * Aspirin 81 mg and Plavix 75 QD x21 days then switch to plavix only * NS @100 ml/h * Hip XR: normal findings * HAROON negative * carotid US negative for disease/stenosis * f/u echo * f/u brain MRI without contrast * PT/INR: 11.1/1.0 * neuro checks Q8 * PT/OT * Fall risk protocol Status: Acute Priority: High (2) Dizziness Assessment and Plan: * see above Status: Acute (3) HTN (hypertension) Assessment and Plan: * Amlodipine/Valsartan PO QD * Hydralazine 25 mg PO QD Status: Acute (4) HLD (hyperlipidemia) Assessment and Plan: * Crestor 10 mg PO HS Status: Acute (5) Diabetes mellitus Assessment and Plan: * Lantus 40 U SC HS * Januvia 100 mg PO QD Status: Acute (6) Prophylactic measure Assessment and Plan: * Pepcid 20 mg PO BID * Heparin 5000U SC Q8 Status: Acute <Camara,Peter H - Last Filed: 07/01/17 15:00> Objective - Vital Signs/Intake and Output Vital Signs (last 24 hours): Temp Pulse Resp BP Pulse Ox 98.2 F 68 20 167/81 H 95 07/01/17 07:15 07/01/17 07:15 07/01/17 07:15 07/01/17 07:15 07/01/17 07:15 Intake and Output: 07/01/17 07/01/17 06:59 18:59 Intake Total 250 Output Total 200 Balance 50 - Medications Medications: Current Medications Allopurinol (Zyloprim) 100 mg PO DAILY [facility] Last Admin: 07/01/17 09:41 Dose: 100 mg Aspirin (Aspirin Chewable) 81 mg PO DAILY [facility] Last Admin: 07/01/17 09:41 Dose: 81 mg Clopidogrel Bisulfate (Plavix) 75 mg PO DAILY [facility] Docusate Sodium (Colace) 100 mg PO BID PRN PRN Reason: Constipation Last Admin: 07/01/17 09:41 Dose: 100 mg Famotidine (Pepcid) 20 mg PO BID [facility] Last Admin: 07/01/17 09:41 Dose: 20 mg Heparin Sodium (Porcine) (Heparin) 5,000 units SC Q8 [facility] Last Admin: 07/01/17 06:09 Dose: 5,000 units Home Med (Difluprednate [Durezol]) 5 ml OU QID [facility] Home Med (Paricalcitol [Paricalcitol]) 1 mcg PO DAILY [facility] Hydralazine HCl (Apresoline) 25 mg PO DAILY [facility] Last Admin: 07/01/17 09:41 Dose: 25 mg Insulin Glargine (Lantus) 40 unit SC HS [facility] Last Admin: 06/30/17 21:54 Dose: Not Given Losartan Potassium (Cozaar) 100 mg PO DAILY [facility] Last Admin: 07/01/17 09:42 Dose: 100 mg Meclizine HCl (Antivert) 12.5 mg PO Q8H PRN PRN Reason: Dizziness Rosuvastatin Calcium (Crestor) 10 mg PO [facility] Last Admin: 06/30/17 21:32 Dose: 10 mg Sevelamer Carbonate (Renvela) 800 mg PO BID [facility] Last Admin: 07/01/17 09:41 Dose: 800 mg Sitagliptin Phosphate (Januvia) 100 mg PO DAILY [facility] Last Admin: 07/01/17 09:46 Dose: 100 mg - Labs Labs: 07/01/17 06:32 07/01/17 06:32 PT 11.1 SECONDS (9.7-12.2) 06/30/17 08:23 INR 1.0 06/30/17 08:23 APTT 33 SECONDS (21-34) 06/30/17 08:23 Attending/Attestation - Attestation I have personally seen and examined this patient.: Yes I have fully participated in the care of the patient.: Yes I have reviewed all pertinent clinical information, including history, physical exam and plan: Yes Notes (Text): Medical Attending: Patient was seen and examined by me. Agree with the above note by the resident The patient was able to walk with me in the room. He reported this is an improvement from before. CN 2-12 intact. Also EOMI, he had 5/5 strength in flexion/extention of arms and hands. He walks into the hallway with assistance of a cane he has at bedside. The patient denied feeling weak, denied dizziness, denied chest pain or shortness of breath when he stands up and walks with me. Today he underwent MRI and MRA of the brain and neck. The results are still pending at this moment. He also underwent an echo and carotid as well. The carotid only showed mild left carotid disease. The echo is still pending.
[2017-07-01 12:27] LABS: THYROID STIMULATING HORMONE 0.96 mIU/L (0.46-4.68)
--- NOTE | 2017-07-01 13:50 | MRI ---
PROCEDURE: MRI BRAIN WITHOUT CONTRAST HISTORY: fall, difficulty ambulating, history of CVA COMPARISON: Unenhanced head CT 06/30/2017. TECHNIQUE: Multiplanar, multisequence MR images of the brain were obtained without intravenous contrast enhancement. FINDINGS: HEMORRHAGE: None DWI: No evidence of an acute or early subacute infarction. BRAIN PARENCHYMA: Diffuse cerebral atrophy chronic microangiopathy are reiterated the current examination as seen in the prior head CTs 06/30/2017 with microangiopathy somewhat better depicted in the current study. There is no mass effect or suspicious extra-axial collection identified. Post fossa contents are stable and unremarkable. The midline brain and appears unremarkable as well grossly. VENTRICLES: Unremarkable. No hydrocephalus. CRANIUM: Unremarkable. ORBITS: Grossly unremarkable. PARANASAL SINUSES/MASTOIDS: Right mastoid effusions are identified. VASCULAR SYSTEM: Skull base flow voids intact. OTHER FINDINGS: None. IMPRESSION: Reiterated age related neuro degenerative findings as discussed above. No acute intracranial findings in the interval. Right mastoid effusions incidentally noted.
--- NOTE | 2017-07-01 13:56 | MRI ---
PROCEDURE: Magnetic Resonance Angiography Brain HISTORY: ataxia COMPARISON: None available. TECHNIQUE: 3D time of flight MR angiography of the intracranial arteries was performed. Rotating maximum intensity projection images were generated. FINDINGS: INTERNAL CAROTID ARTERIES: Unremarkable. The skull base, petrous, cavernous and supraclinoid segments are bilaterally widely patient. ANTERIOR CEREBRAL ARTERIES: Unremarkable. A1 and A2 segments are widely patent. Smaller distal branches unremarkable, as visualized. MIDDLE CEREBRAL ARTERIES: Unremarkable. M1 and M2 segments are widely patent. Perisylvian branches grossly symmetric. POSTERIOR CIRCULATION: Basilar Artery: Unremarkable. Distal Vertebral Arteries: Unremarkable. Right dominant. Posterior Cerebral Arteries: Unremarkable. Posterior Inferior Cerebellar Arteries: Not identified. ANEURYSM/ VASCULAR MALFORMATIONS: None. OTHER FINDINGS: None. IMPRESSION: Unremarkable MR angiography of the brain.
--- NOTE | 2017-07-01 13:59 | MRI ---
PROCEDURE: MR Angiography of the neck without contrast HISTORY: ataxia COMPARISON: None available. TECHNIQUE: 3D [id number] angiography of the neck was performed. Rotating maximum intensity projection images of the cervical carotid and vertebral arteries were generated. The origins of the common carotid arteries were not visualized, which is a limitation inherent to the non-contrast time of flight technique. FINDINGS: RIGHT CAROTID ARTERIES: Common Carotid Artery: Patent without significant stenosis. Carotid Bifurcation: Patent without significant stenosis. Internal Carotid Artery:Patent without significant stenosis. External Carotid Artery (proximal branches): Patent without significant stenosisrmal. LEFT CAROTID ARTERIES: Common Carotid Artery: Patent without significant stenosis. Carotid Bifurcation: Patent without significant stenosis. Internal Carotid Artery:Patent without significant stenosis. External Carotid Artery (proximal branches): Patent without significant stenosis. VERTEBRAL ARTERIES: Right Vertebral Artery: Normal. Left Vertebral Artery: Persistent origin small caliber. OTHER FINDINGS: None. IMPRESSION: No significant stenosis identified as discussed above.
--- NOTE | 2017-07-01 14:32 | CARD ---
APPROVED REPORT EXAM: Two-dimensional and M-mode echocardiogram with Doppler and color Doppler. Other Information Quality : Good[employer] : INDICATION WEAKNESS RISK FACTORS Hypertension Hyperlipidemia Diabetes 2D DIMENSIONS IVSd1.3 (0.7-1.1cm)LVDd4.0 (3.9-5.9cm) PWd1.1 (0.7-1.1cm)LVDs2.8 (2.5-4.0cm) FS (%) 29.3 %LVEF (%)56.8 (>50%) M-Mode DIMENSIONS RVDd2.02 (2.1-3.2cm)Left Atrium (MM)3.22 (2.5-4.0cm) IVSd1.04 (0.7-1.1cm)Aortic Root3.16 (2.2-3.7cm) LVDd4.46 (4.0-5.6cm)Aortic Cusp Exc.2.15 (1.5-2.0cm) PWd1.24 (0.7-1.1cm)FS (%) 45 % LVDs2.44 (2.0-3.8cm)LVEF (%)77 (>50%) Mitral Valve MV E Qwrqbqtz92.0cm/sMV A Oosrepjl07.9cm/sE/A ratio0.7 TDI E/Lateral E'0.0E/Medial E'0.0 Tricuspid Valve TR Peak Opfdspzi002sc/sTR Peak Gr.[id number] LEFT VENTRICLE The left ventricle is normal size. There is mild concentric left ventricular hypertrophy. The left ventricular function is normal. The left ventricular ejection fraction is within the normal range. No regional wall motion abnormalities noted. Transmitral Doppler flow pattern is Grade I-abnormal relaxation pattern. No left ventricle thrombus noted on this study. There is no ventricular septal defect visualized. There is no left ventricular aneurysm. There is no mass noted in the left ventricle. RIGHT VENTRICLE The right ventricle is normal size. There is normal right ventricular wall thickness. The right ventricular systolic function is normal. ATRIA The left atrium size is normal. The right atrium size is normal. The interatrial septum is intact with no evidence for an atrial septal defect. AORTIC VALVE The aortic valve is normal in structure and function. No aortic regurgitation is present. There is no aortic valvular stenosis. There is no aortic valvular vegetation. MITRAL VALVE The mitral valve is normal in structure and function. There is no evidence of mitral valve prolapse. There is no mitral valve stenosis. There is no mitral valve regurgitation noted. TRICUSPID VALVE The tricuspid valve is normal in structure and function. There is trace tricuspid regurgitation. There is no tricuspid valve prolapse or vegetation. There is no tricuspid valve stenosis. PULMONIC VALVE The pulmonary valve is normal in structure and function. There is no pulmonic valvular regurgitation. There is no pulmonic valvular stenosis. GREAT VESSELS The aortic root is normal in size. The ascending aorta is normal in size. The pulmonary artery is normal. The IVC is normal in size and collapses >50% with inspiration. PERICARDIAL EFFUSION The pericardium appears normal. There is no pleural effusion. <Conclusion> The left ventricular ejection fraction is within the normal range. There is mild concentric left ventricular hypertrophy. There is trace tricuspid regurgitation.
--- NOTE | 2017-07-01 14:48 | CP.PCM.PN ---
Subjective - Date & Time of Evaluation Date of Evaluation: 07/01/17 Time of Evaluation: 14:44 - Subjective Subjective: Mr. Phan was seen and examined today at bedside. His daughter was present and we discussed the normal MRI findings as well as the possible reason for the ataxia, balance problems being due to the chronic history of vertigo that has not been controlled well with meclizine. Today, the patient was feeling much better and he was able to ambulate by himself without assistance. Objective - Vital Signs/Intake and Output Vital Signs (last 24 hours): Temp Pulse Resp BP Pulse Ox 98.2 F 68 20 167/81 H 95 07/01/17 07:15 07/01/17 07:15 07/01/17 07:15 07/01/17 07:15 07/01/17 07:15 Intake and Output: 07/01/17 07/01/17 06:59 18:59 Intake Total 250 Output Total 200 Balance 50 - Medications Medications: Current Medications Allopurinol (Zyloprim) 100 mg PO DAILY [facility] Last Admin: 07/01/17 09:41 Dose: 100 mg Aspirin (Aspirin Chewable) 81 mg PO DAILY [facility] Last Admin: 07/01/17 09:41 Dose: 81 mg Clopidogrel Bisulfate (Plavix) 75 mg PO DAILY [facility] Last Admin: 07/01/17 13:00 Dose: 75 mg Docusate Sodium (Colace) 100 mg PO BID PRN PRN Reason: Constipation Last Admin: 07/01/17 09:41 Dose: 100 mg Famotidine (Pepcid) 20 mg PO BID [facility] Last Admin: 07/01/17 09:41 Dose: 20 mg Heparin Sodium (Porcine) (Heparin) 5,000 units SC Q8 [facility] Last Admin: 07/01/17 13:40 Dose: 5,000 units Home Med (Difluprednate [Durezol]) 5 ml OU QID [facility] Home Med (Paricalcitol [Paricalcitol]) 1 mcg PO DAILY [facility] Hydralazine HCl (Apresoline) 25 mg PO DAILY [facility] Last Admin: 07/01/17 09:41 Dose: 25 mg Insulin Glargine (Lantus) 40 unit SC HS [facility] Last Admin: 06/30/17 21:54 Dose: Not Given Losartan Potassium (Cozaar) 100 mg PO DAILY [facility] Last Admin: 07/01/17 09:42 Dose: 100 mg Meclizine HCl (Antivert) 12.5 mg PO Q8H PRN PRN Reason: Dizziness Rosuvastatin Calcium (Crestor) 10 mg PO HS [facility] Last Admin: 06/30/17 21:32 Dose: 10 mg Sevelamer Carbonate (Renvela) 800 mg PO BID [facility] Last Admin: 07/01/17 09:41 Dose: 800 mg Sitagliptin Phosphate (Januvia) 100 mg PO DAILY [facility] Last Admin: 07/01/17 09:46 Dose: 100 mg - Labs Labs: 07/01/17 06:32 07/01/17 06:32 PT 11.1 SECONDS (9.7-12.2) 06/30/17 08:23 INR 1.0 06/30/17 08:23 APTT 33 SECONDS (21-34) 06/30/17 08:23 - Neurological Exam Neurological Exam: Abnormal Gait, Alert, Awake, CN II-XII Intact, Oriented x3 Neuro motor strength exam: Left Upper Extremity: 5, Right Upper Extremity: 5, Left Lower Extremity: 5, Right Lower Extremity: 5 Additional comments: Gait is still somewhat wide-based and ataxic. He is not falling or leaning to any one particular side. Assessment and Plan (1) Ataxia Assessment & Plan: Seems to be improved. The gait disturbance appears to be wide-based today and likely has something to do with chronic ischemic change. MRI of the brain does not show any acute findings and the MRA was normal. Metabolic derangements, renal failure as well as medications may also play a role. The patient may be given valium 2 mg Q12 PRN, if he has vertigo since the meclizine is not working. He will require PT/OT. No further recommendations at this time. Status: Acute
[2017-07-01] MEDS: (Lantus) Insulin Glargine, Recombinant SC SCH (22:23)
--- NOTE | 2017-07-01 22:44 | CP.PCM.PN ---
Subjective - Date & Time of Evaluation Date of Evaluation: 07/01/17 Time of Evaluation: 22:41 - Subjective Subjective: echo reviewed c/w dehydration carotids normal MRI/MRA normal ataxia Objective - Vital Signs/Intake and Output Vital Signs (last 24 hours): Temp Pulse Resp BP Pulse Ox 97.6 F 65 18 151/84 H 97 07/01/17 15:32 07/01/17 15:32 07/01/17 15:32 07/01/17 15:32 07/01/17 15:32 Intake and Output: 07/01/17 07/02/17 18:59 06:59 Intake Total 350 400 Balance 350 400 - Medications Medications: Current Medications Allopurinol (Zyloprim) 100 mg PO DAILY [facility] Last Admin: 07/01/17 09:41 Dose: 100 mg Aspirin (Aspirin Chewable) 81 mg PO DAILY [facility] Last Admin: 07/01/17 09:41 Dose: 81 mg Clopidogrel Bisulfate (Plavix) 75 mg PO DAILY [facility] Last Admin: 07/01/17 13:00 Dose: 75 mg Docusate Sodium (Colace) 100 mg PO BID PRN PRN Reason: Constipation Last Admin: 07/01/17 18:01 Dose: 100 mg Famotidine (Pepcid) 20 mg PO BID [facility] Last Admin: 07/01/17 18:01 Dose: 20 mg Heparin Sodium (Porcine) (Heparin) 5,000 units SC Q8 [facility] Last Admin: 07/01/17 21:22 Dose: 5,000 units Home Med (Difluprednate [Durezol]) 5 ml OU QID [facility] Home Med (Paricalcitol [Paricalcitol]) 1 mcg PO DAILY [facility] Hydralazine HCl (Apresoline) 25 mg PO DAILY [facility] Last Admin: 07/01/17 09:41 Dose: 25 mg Insulin Glargine (Lantus) 40 unit SC HS [facility] Last Admin: 07/01/17 22:23 Dose: Not Given Losartan Potassium (Cozaar) 100 mg PO DAILY [facility] Last Admin: 07/01/17 09:42 Dose: 100 mg Meclizine HCl (Antivert) 12.5 mg PO Q8H PRN PRN Reason: Dizziness Last Admin: 07/01/17 18:01 Dose: 12.5 mg Rosuvastatin Calcium (Crestor) 10 mg PO HS [facility] Last Admin: 07/01/17 21:23 Dose: 10 mg Sevelamer Carbonate (Renvela) 800 mg PO BID [facility] Last Admin: 07/01/17 18:00 Dose: 800 mg Sitagliptin Phosphate (Januvia) 100 mg PO DAILY [facility] Last Admin: 07/01/17 09:46 Dose: 100 mg - Labs Labs: 07/01/17 06:32 07/01/17 06:32 PT 11.1 SECONDS (9.7-12.2) 06/30/17 08:23 INR 1.0 06/30/17 08:23 APTT 33 SECONDS (21-34) 06/30/17 08:23 - Constitutional Appears: Well - Head Exam Head Exam: ATRAUMATIC, NORMAL INSPECTION, NORMOCEPHALIC - Eye Exam Eye Exam: EOMI, Normal appearance, PERRL Pupil Exam: NORMAL ACCOMODATION, PERRL - ENT Exam ENT Exam: Mucous Membranes Moist, Normal Exam - Neck Exam Neck Exam: Full ROM, Normal Inspection. absent: Lymphadenopathy - Respiratory Exam Respiratory Exam: Clear to Ausculation Bilateral, NORMAL BREATHING PATTERN - Cardiovascular Exam Cardiovascular Exam: REGULAR RHYTHM, +S1, +S2, Murmur - GI/Abdominal Exam GI & Abdominal Exam: Soft, Normal Bowel Sounds. absent: Tenderness - Extremities Exam Extremities Exam: Full ROM, Normal Capillary Refill, Normal Inspection. 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
[2017-07-02 07:52] LABS: BASO # 0.1 K/uL (0.0-0.2); BASO % 0.6 % (0.0-2.0); EOS # 0.3 K/uL (0.0-0.7); EOS % 3.2 % (0.0-4.0); HEMATOCRIT 35.6 % (35.0-51.0); LYMPH # 1.7 K/uL (1.0-4.3); LYMPH % 19.7 % (20.0-40.0); MEAN CELL VOLUME 89.2 fL (80.0-94.0); MEAN CORPUSCULAR HEMOGLOBIN 30.2 pg (27.0-31.0); MEAN CORPUSCULAR HGB CONC 33.8 g/dL (33.0-37.0); MEAN PLATELET VOLUME 7.5 fL (7.2-11.7); MONO # 0.6 K/uL (0.0-0.8); MONO % 6.9 % (0.0-10.0); WHITE BLOOD COUNT 8.7 K/uL (4.8-10.8)
[2017-07-02 08:10] LABS: ALB/GLOB RATIO 1.4 (1.0-2.1); BILIRUBIN,TOTAL 0.8 mg/dL (0.2-1.3); CALCIUM 8.9 mg/dl (8.6-10.4); POTASSIUM 4.4 mmol/L (3.6-5.2); TOTAL PROTEIN 6.6 g/dL (6.3-8.3)
[2017-07-02 09:05] VITALS: BP 135/83; RESP 18; TEMP 98.9
--- NOTE | 2017-07-02 09:20 | CP.PCM.PN ---
Subjective - Date & Time of Evaluation Date of Evaluation: 07/02/17 Time of Evaluation: 09:20 Objective - Vital Signs/Intake and Output Vital Signs (last 24 hours): Temp Pulse Resp BP Pulse Ox 98.9 F 86 18 135/83 97 07/02/17 07:15 07/02/17 07:15 07/02/17 07:15 07/02/17 07:15 07/02/17 07:15 Intake and Output: 07/02/17 07/02/17 06:59 18:59 Intake Total 400 Balance 400 - Medications Medications: Current Medications Allopurinol (Zyloprim) 100 mg PO DAILY [facility] Last Admin: 07/01/17 09:41 Dose: 100 mg Aspirin (Aspirin Chewable) 81 mg PO DAILY [facility] Last Admin: 07/01/17 09:41 Dose: 81 mg Clopidogrel Bisulfate (Plavix) 75 mg PO DAILY [facility] Last Admin: 07/01/17 13:00 Dose: 75 mg Docusate Sodium (Colace) 100 mg PO BID PRN PRN Reason: Constipation Last Admin: 07/01/17 18:01 Dose: 100 mg Famotidine (Pepcid) 20 mg PO BID [facility] Last Admin: 07/01/17 18:01 Dose: 20 mg Heparin Sodium (Porcine) (Heparin) 5,000 units SC Q8 [facility] Last Admin: 07/02/17 05:33 Dose: 5,000 units Home Med (Difluprednate [Durezol]) 5 ml OU QID [facility] Home Med (Paricalcitol [Paricalcitol]) 1 mcg PO DAILY [facility] Hydralazine HCl (Apresoline) 25 mg PO DAILY [facility] Last Admin: 07/01/17 09:41 Dose: 25 mg Insulin Glargine (Lantus) 40 unit SC [facility] Last Admin: 07/01/17 22:23 Dose: Not Given Losartan Potassium (Cozaar) 100 mg PO DAILY [facility] Last Admin: 07/01/17 09:42 Dose: 100 mg Meclizine HCl (Antivert) 12.5 mg PO Q8H PRN PRN Reason: Dizziness Last Admin: 07/01/17 18:01 Dose: 12.5 mg Rosuvastatin Calcium (Crestor) 10 mg PO HS [facility] Last Admin: 07/01/17 21:23 Dose: 10 mg Sevelamer Carbonate (Renvela) 800 mg PO BID [facility] Last Admin: 07/01/17 18:00 Dose: 800 mg Sitagliptin Phosphate (Januvia) 100 mg PO DAILY [facility] Last Admin: 07/01/17 09:46 Dose: 100 mg - Labs Labs: 07/02/17 07:35 07/02/17 07:35 PT 11.1 SECONDS (9.7-12.2) 06/30/17 08:23 INR 1.0 06/30/17 08:23 APTT 33 SECONDS (21-34) 06/30/17 08:23 Assessment and Plan (1) Ataxia Status: Acute (2) Dizziness Status: Acute (3) HTN (hypertension) Status: Acute (4) HLD (hyperlipidemia) Status: Acute (5) Diabetes mellitus Status: Acute (6) Prophylactic measure Status: Acute
[2017-07-02] MEDS ORDERED: Sodium Chloride 0.9% 1,000 ML IV ONE (09:34)
[2017-07-02 10:45] VITALS: PULSE 94
[2017-07-02 13:02] VITALS: O2SAT 96
--- NOTE | 2017-07-02 16:57 | CP.PCM.DIS ---
<Narcisa Vu - Last Filed: 07/02/17 16:45> Provider - Provider Date of Admission: 06/30/17 09:26 Attending physician: Isac Camara DO Primary care physician: Dr. Munguia Consults: Dr. Walls Time Spent in preparation of Discharge (in minutes): 35 Diagnosis - Discharge Diagnosis (1) Ataxia Status: Acute Priority: High (2) Dizziness Status: Acute (3) HTN (hypertension) Status: Acute (4) HLD (hyperlipidemia) Status: Acute (5) Diabetes mellitus Status: Acute (6) Prophylactic measure Status: Acute Hospital Course - Lab Results Lab Results: Most Recent Lab Values WBC 8.7 K/uL (4.8-10.8) 07/02/17 07:35 RBC 3.99 Mil/uL (4.40-5.90) L 07/02/17 07:35 Hgb 12.1 g/dL (12.0-18.0) 07/02/17 07:35 Hct 35.6 % (35.0-51.0) 07/02/17 07:35 MCV 89.2 fL (80.0-94.0) 07/02/17 07:35 MCH 30.2 pg (27.0-31.0) 07/02/17 07:35 MCHC 33.8 g/dL (33.0-37.0) 07/02/17 07:35 RDW 14.0 % (11.5-14.5) 07/02/17 07:35 Plt Count 260 K/uL (130-400) 07/02/17 07:35 MPV 7.5 fL (7.2-11.7) 07/02/17 07:35 Neut % (Auto) 69.6 % (50.0-75.0) 07/02/17 07:35 Lymph % (Auto) 19.7 % (20.0-40.0) L 07/02/17 07:35 [place] % (Auto) 6.9 % (0.0-10.0) 07/02/17 07:35 Eos % (Auto) 3.2 % (0.0-4.0) 07/02/17 07:35 Baso % (Auto) 0.6 % (0.0-2.0) 07/02/17 07:35 Neut # 6.0 K/uL (1.8-7.0) 07/02/17 07:35 Lymph # 1.7 K/uL (1.0-4.3) 07/02/17 07:35 [place]ett # 0.6 K/uL (0.0-0.8) 07/02/17 07:35 Eos # 0.3 K/uL (0.0-0.7) 07/02/17 07:35 Baso # 0.1 K/uL (0.0-0.2) 07/02/17 07:35 PT 11.1 SECONDS (9.7-12.2) 06/30/17 08:23 INR 1.0 06/30/17 08:23 APTT 33 SECONDS (21-34) 06/30/17 08:23 Sodium 134 mmol/L (132-148) 07/02/17 07:35 Potassium 4.4 mmol/L (3.6-5.2) 07/02/17 07:35 Chloride 100 mmol/L (98-107) 07/02/17 07:35 Carbon Dioxide 26 mmol/L (22-30) 07/02/17 07:35 Anion Gap 13 (10-20) 07/02/17 07:35 BUN 24 mg/dL (9-20) H 07/02/17 07:35 Creatinine 1.7 mg/dL (0.8-1.5) H 07/02/17 07:35 Est GFR ( Amer) 48 07/02/17 07:35 Est GFR (Non-Af Amer) 40 07/02/17 07:35 POC Glucose (mg/dL) 265 mg/dL (65-110) H 07/02/17 06:17 Random Glucose 216 mg/dL (75-110) H 07/02/17 07:35 Hemoglobin A1c 7.4 % (4.2-6.5) H 07/01/17 11:36 Calcium 8.9 mg/dl (8.6-10.4) 07/02/17 07:35 Total Bilirubin 0.8 mg/dL (0.2-1.3) 07/02/17 07:35 AST 22 U/L (17-59) 07/02/17 07:35 ALT 30 U/L (21-72) 07/02/17 07:35 Alkaline Phosphatase 64 U/L (38-126) 07/02/17 07:35 Total Creatine Kinase 104 U/L (55-170) 06/30/17 18:13 CK-MB (Mass) 0.67 ng/mL (0.0-3.38) 06/30/17 18:13 Troponin I < 0.0120 ng/mL (0.00-0.120) 06/30/17 18:13 Total Protein 6.6 g/dL (6.3-8.3) 07/02/17 07:35 Albumin 3.9 g/dL (3.5-5.0) 07/02/17 07:35 Globulin 2.7 gm/dL (2.2-3.9) 07/02/17 07:35 Albumin/Globulin Ratio 1.4 (1.0-2.1) 07/02/17 07:35 Triglycerides 142 mg/dL (0-149) 07/01/17 11:36 Cholesterol 126 mg/dL (0-199) 07/01/17 11:36 LDL Cholesterol Direct 51 mg/dL (0-129) 07/01/17 11:36 HDL Cholesterol 51 mg/dL (30-70) 07/01/17 11:36 Vitamin B12 352 pg/mL (239-931) 07/01/17 11:36 25-OH Vitamin D Total 32.7 NG/ML (30.0-100.0) 07/01/17 11:36 TSH 3rd Generation 0.96 mIU/L (0.46-4.68) 07/01/17 11:36 Urine Color Straw (YELLOW) 06/30/17 10:05 Urine Clarity Clear (Clear) 06/30/17 10:05 Urine pH 5.0 (5.0-8.0) 06/30/17 10:05 Ur Specific [place] 1.012 (1.003-1.030) 06/30/17 10:05 Urine Protein 2+ mg/dL (NEGATIVE) H 06/30/17 10:05 Urine Glucose (UA) 1+ mg/dL (Normal) H 06/30/17 10:05 Urine Ketones Negative mg/dL (NEGATIVE) 06/30/17 10:05 Urine Blood Negative (NEGATIVE) 06/30/17 10:05 Urine Nitrate Negative (NEGATIVE) 06/30/17 10:05 Urine Bilirubin Negative (NEGATIVE) 06/30/17 10:05 Urine Urobilinogen Normal mg/dL (0.2-1.0) 06/30/17 10:05 Ur Leukocyte Esterase Neg Janae/uL (Negative) 06/30/17 10:05 Urine WBC (Auto) < 1 /hpf (0-5) 06/30/17 10:05 Urine RBC (Auto) < 1 /hpf (0-3) 06/30/17 10:05 - Hospital Course Hospital Course: Upon Admission: 71 M who presents to the ED saying he is having trouble walking. Patient says he had an unwittnessed slip and fall yesterday while mopping the floor. He denies head trauma , loss of conciousness, and injury to his arms and legs at that time. However, when the patient woke up this morning he tried to get out of bed and says he could not stand up and walk. Patient says he did not feel like his legs were numb or even weak but he just could not walk. Patient admits to some mild dizziness upon standing. Patient denies any pain in his legs, headache, changes in vision or hearing, chest pain, palpitations, SOB, N&V, diarrhea, blood in stool, dysuria, calf pain, and LE swelling. Hospital Course: Patient was admitted to telemetry for ataxia. Neurology was consulted (Titi). Started Aspirin 81 mg and Plavix 75 QD. Hip XR showed normal findings. HAROON negative. Carotid US negative for disease/stenosis. MRA head and neck showed no significant stenosis. MRI of brain showed age related neuro degenerative findings, no acute intracranial findings in the interval, and right mastoid effusions incidentally noted. Echo showed EF > 50% and findings consistent with dehydration. Patient treated with NS @100 ml/h. History of HTN, HLD, and DM all treated with home medications. Lipid panel, TSH , B12, Vitamin D all within normal limits. Upon discharge: Patient stable for discharge per Dr. Camara. Patient was discharged with the following instructions: Please follow up with you doctor, Dr. Munguia within one week of discharge and continue all home medications. Please return to the ED if symptoms return or worsen. Please note that this is a summary of events. For more details please see complete medical record. Discharge Exam - Head Exam Head Exam: ATRAUMATIC, NORMAL INSPECTION, NORMOCEPHALIC - Eye Exam Eye Exam: EOMI - ENT Exam ENT Exam: Mucous Membranes Moist - Respiratory Exam Respiratory Exam: Clear to PA & Lateral, NORMAL BREATHING PATTERN, UNREMARKABLE - Cardiovascular Exam Cardiovascular Exam: RRR, +S1, +S2. absent: Diastolic murmur, Gallop, Rubs, Systolic Murmur - GI/Abdominal Exam GI & Abdominal Exam: Normal Bowel Sounds, Unremarkable - Extremities Exam Extremities exam: normal inspection - Neurological Exam Neurological exam: Alert, Oriented x3 - Psychiatric Exam Psychiatric exam: Normal Affect, Normal Mood - Skin Skin Exam: Dry, Intact, Normal Color, Warm Discharge Plan - Follow Up Plan Condition: STABLE Disposition: HOME/ ROUTINE Instructions: Acoustic Neuroma (DC), Heart Healthy Diet (DC), Hypertension (DC) , Hyperlipidemia (DC) Additional Instructions: Please follow up with you doctor, Dr. Munguia within one week of discharge and continue all home medications. Please return to the ED if symptoms return or worsen. <Isac Camara - Last Filed: 07/02/17 17:45> Provider - Provider Date of Admission: 06/30/17 09:26 Attending physician: Isac Camara DO Hospital Course - Lab Results Lab Results: Most Recent Lab Values WBC 8.7 K/uL (4.8-10.8) 07/02/17 07:35 RBC 3.99 Mil/uL (4.40-5.90) L 07/02/17 07:35 Hgb 12.1 g/dL (12.0-18.0) 07/02/17 07:35 Hct 35.6 % (35.0-51.0) 07/02/17 07:35 MCV 89.2 fL (80.0-94.0) 07/02/17 07:35 MCH 30.2 pg (27.0-31.0) 07/02/17 07:35 MCHC 33.8 g/dL (33.0-37.0) 07/02/17 07:35 RDW 14.0 % (11.5-14.5) 07/02/17 07:35 Plt Count 260 K/uL (130-400) 07/02/17 07:35 MPV 7.5 fL (7.2-11.7) 07/02/17 07:35 Neut % (Auto) 69.6 % (50.0-75.0) 07/02/17 07:35 Lymph % (Auto) 19.7 % (20.0-40.0) L 07/02/17 07:35 [place] % (Auto) 6.9 % (0.0-10.0) 07/02/17 07:35 Eos % (Auto) 3.2 % (0.0-4.0) 07/02/17 07:35 Baso % (Auto) 0.6 % (0.0-2.0) 07/02/17 07:35 Neut # 6.0 K/uL (1.8-7.0) 07/02/17 07:35 Lymph # 1.7 K/uL (1.0-4.3) 07/02/17 07:35 [place]ett # 0.6 K/uL (0.0-0.8) 07/02/17 07:35 Eos # 0.3 K/uL (0.0-0.7) 07/02/17 07:35 Baso # 0.1 K/uL (0.0-0.2) 07/02/17 07:35 PT 11.1 SECONDS (9.7-12.2) 06/30/17 08:23 INR 1.0 06/30/17 08:23 APTT 33 SECONDS (21-34) 06/30/17 08:23 Sodium 134 mmol/L (132-148) 07/02/17 07:35 Potassium 4.4 mmol/L (3.6-5.2) 07/02/17 07:35 Chloride 100 mmol/L (98-107) 07/02/17 07:35 Carbon Dioxide 26 mmol/L (22-30) 07/02/17 07:35 Anion Gap 13 (10-20) 07/02/17 07:35 BUN 24 mg/dL (9-20) H 07/02/17 07:35 Creatinine 1.7 mg/dL (0.8-1.5) H 07/02/17 07:35 Est GFR ( Amer) 48 07/02/17 07:35 Est GFR (Non-Af Amer) 40 07/02/17 07:35 POC Glucose (mg/dL) 265 mg/dL (65-110) H 07/02/17 06:17 Random Glucose 216 mg/dL (75-110) H 07/02/17 07:35 Hemoglobin A1c 7.4 % (4.2-6.5) H 07/01/17 11:36 Calcium 8.9 mg/dl (8.6-10.4) 07/02/17 07:35 Total Bilirubin 0.8 mg/dL (0.2-1.3) 07/02/17 07:35 AST 22 U/L (17-59) 07/02/17 07:35 ALT 30 U/L (21-72) 07/02/17 07:35 Alkaline Phosphatase 64 U/L (38-126) 07/02/17 07:35 Total Creatine Kinase 104 U/L (55-170) 06/30/17 18:13 CK-MB (Mass) 0.67 ng/mL (0.0-3.38) 06/30/17 18:13 Troponin I < 0.0120 ng/mL (0.00-0.120) 06/30/17 18:13 Total Protein 6.6 g/dL (6.3-8.3) 07/02/17 07:35 Albumin 3.9 g/dL (3.5-5.0) 07/02/17 07:35 Globulin 2.7 gm/dL (2.2-3.9) 07/02/17 07:35 Albumin/Globulin Ratio 1.4 (1.0-2.1) 07/02/17 07:35 Triglycerides 142 mg/dL (0-149) 07/01/17 11:36 Cholesterol 126 mg/dL (0-199) 07/01/17 11:36 LDL Cholesterol Direct 51 mg/dL (0-129) 07/01/17 11:36 HDL Cholesterol 51 mg/dL (30-70) 07/01/17 11:36 Vitamin B12 352 pg/mL (239-931) 07/01/17 11:36 25-OH Vitamin D Total 32.7 NG/ML (30.0-100.0) 07/01/17 11:36 TSH 3rd Generation 0.96 mIU/L (0.46-4.68) 07/01/17 11:36 Urine Color Straw (YELLOW) 06/30/17 10:05 Urine Clarity Clear (Clear) 06/30/17 10:05 Urine pH 5.0 (5.0-8.0) 06/30/17 10:05 Ur Specific [place] 1.012 (1.003-1.030) 06/30/17 10:05 Urine Protein 2+ mg/dL (NEGATIVE) H 06/30/17 10:05 Urine Glucose (UA) 1+ mg/dL (Normal) H 06/30/17 10:05 Urine Ketones Negative mg/dL (NEGATIVE) 06/30/17 10:05 Urine Blood Negative (NEGATIVE) 06/30/17 10:05 Urine Nitrate Negative (NEGATIVE) 06/30/17 10:05 Urine Bilirubin Negative (NEGATIVE) 06/30/17 10:05 Urine Urobilinogen Normal mg/dL (0.2-1.0) 06/30/17 10:05 Ur Leukocyte Esterase Neg Janae/uL (Negative) 06/30/17 10:05 Urine WBC (Auto) < 1 /hpf (0-5) 06/30/17 10:05 Urine RBC (Auto) < 1 /hpf (0-3) 06/30/17 10:05 Attending/Attestation - Attestation I have personally seen and examined this patient.: Yes I have fully participated in the care of the patient.: Yes I have reviewed all pertinent clinical information, including history, physical exam and plan: Yes Notes (Text): 07/02/17 17:42 Medical attending: Patient was seen and examined by me. Agree with the above note by the resident. Patient reports he felt well, and also when I asked him he said his walking is back to normal. His echo was reviewed by cardiology and also MRI as well as MRA of the brain and neck completed and were stable. On exam he was able to walk in the room with his walking cane and out of the room quite readily without other people assisting him. So will discharge today thank you Isac Camara
--- NOTE | 2017-07-04 19:38 | CARD ---
APPROVED REPORT EKG Measurement Heart [id number] [id number] [id number] <Conclusion> Normal sinus rhythm Normal ECG
== END 2017-07-02 11:06 | disposition home or self-care (01) | DRG 93 ==
LOC: C.ER 07:57 → C.9E 09:26 → C.6T 18:26
PROVIDERS: ADMIT Hospitalist; ATTEND Hospitalist
PROC: 3E0234Z Introduction of Serum, Toxoid and Vaccine into Muscle, Percutaneous Approach (ICD-10-PCS; principal; 2017-07-02)
DX: R27.0 Ataxia, unspecified (principal); E86.0 Dehydration; I12.9 Hypertensive chronic kidney disease with stage 1 through stage 4 chronic kidney disease, or unspecified chronic kidney disease; E10.22 Type 1 diabetes mellitus with diabetic chronic kidney disease; N18.9 Chronic kidney disease, unspecified; R55 Syncope and collapse; E78.5 Hyperlipidemia, unspecified; Z79.82 Long term (current) use of aspirin; Z86.73 Personal history of transient ischemic attack (TIA), and cerebral infarction without residual deficits; Z23 Encounter for immunization; Z79.02 Long term (current) use of antithrombotics/antiplatelets